=== PATIENT | male | born 1945 | race Caucasian/White ===

== ENCOUNTER 2017-08-12 05:53 | Emergency (ER) | payer MEDICARE ==
[2017-08-12 06:44] LABS: BASOPHIL % 0.3 % (0-2); PLATELET COUNT 212 x10^3mcL (130-400); RED CELL DISTRIBUTION WIDTH 13.6 % (11.5-14.5)
[2017-08-12 06:50] LABS: microscopic required? NO
[2017-08-12 07:01] LABS: CALCIUM 8.9 mg/dL (8.5-10.1); CARBON DIOXIDE 31.9 mmol/L (21-32); CHLORIDE SERUM 105 mmol/L (98-107); CREATININE SERUM 1.1 mg/dL (0.7-1.3); GLUCOSE SERUM 163 mg/dL (74-106); SODIUM SERUM 142 mmol/L (136-145)
[2017-08-12 07:05] LABS: ALBUMIN 3.5 g/dL (3.4-5.0); ALKALINE PHOSPHATASE 89 U/L (46-116); ALT/SGPT 31 U/L (16-63); AMYLASE 52 U/L (25-115); AST/SGOT 28 U/L (15-37); BILIRUBIN TOTAL 0.5 mg/dL (0.20-1.00); CHOLESTEROL 159 mg/dL (<200); HDL CHOLESTEROL 46 mg/dL (40-60); LIPASE 134 IU/L (73-393); TOTAL PROTEIN, SERUM 6.9 g/dL (6.4-8.2)
[2017-08-12 07:18] LABS: UA SPECIFIC GRAVITY 1.025 (1.005-1.035); urine erythrocyte NEGATIVE (NEGATIVE)
[2017-08-12 08:02] LABS: AMPHETAMINE QUAL UR NONE DETECTED (See below)
[2017-08-12 08:28] VITALS: BP 121/65
== END 2017-08-12 08:28 | disposition home or self-care (01) ==
LOC: ED 05:53
PROVIDERS: Emergency Medicine
DX: R11.0 Nausea (principal); I49.3 Ventricular premature depolarization; E78.00 Pure hypercholesterolemia, unspecified
CPT/HCPCS: 36415; 83880; Q0092; Q0162